=== PATIENT | female | born 1985 | race Caucasian/White ===

== ENCOUNTER → 2016-04-05 | Outpatient (CLI) | payer BC ==
[~2016-04-05] MED LIST: MULTTAB67 PO; PERC5TAB12 PO; ZOFR8TAB4 SL
[2016-04-05 13:07] LABS: MEAN CORPUSCULAR HGB CONC 29.4 % (32.0-36.0)
[2016-04-05 14:41] LABS: AUTOMATED NEUTROPHIL # 3.8 TH/MM3 (1.8-7.7); BASOPHIL # 0.1 TH/MM3 (0-0.2); BASOPHIL % 1.4 % (0.0-2.0); EOSINOPHIL # 0.5 TH/MM3 (0-0.4); EOSINOPHIL % 7.3 % (0.0-4.0); HEMATOCRIT 30.5 % (35.0-46.0); LYMPH % 28.4 % (9.0-44.0); LYMPHOCYTE # 1.9 TH/MM3 (1.0-4.8); MEAN CELL VOLUME 64.1 FL (80.0-100.0); MEAN CORPUSCULAR HEMOGLOBIN 18.8 PG (27.0-34.0); NEUT % 55.9 % (16.0-70.0); PLATELET COUNT 520 TH/MM3 (150-450); RED BLOOD COUNT 4.77 MIL/MM3 (4.00-5.30); RED CELL DISTRIBUTION WIDTH 22.1 % (11.6-17.2); WHITE BLOOD COUNT 6.8 TH/MM3 (4.0-11.0)
[2016-04-05 14:45] LABS: HEMO FLAGS AUTO DIFF
[2016-04-05 15:00] LABS: BLOOD, URINE NEG (NEG); COMMENT (UR) CULT NOT INDICATED; CULTURE IF INDICATED CULT NOT INDICATED; GLUCOSE,URINE NEG (NEG); KETONE, URINE NEG (NEG); MUCUS URINE FEW /lpf (OCC); NITRITE,URINE NEG (NEG); PH, URINE 5.5 (5.0-8.5); SQUAMOUS EPITHELIAL CELL URINE <1 /hpf (0-5); URINE COLOR YELLOW (YELLW/STRAW)
[2016-04-05 15:10] LABS: OVALOCYTES 2+ (NORMAL); PLATELET ESTIMATE SMEAR HIGH (NORMAL); PLATELET MORPHOLOGY NORMAL (NORMAL); TEARDROP RBCS 1+ (NORMAL)
[2016-04-05 15:11] LABS: SCAN/DIFF AUTO DIFF CONFIRMED
--- NOTE | 2016-04-06 17:09 | EKG ---
Date Performed: 04/05/2016 Time Performed: 13:24:07 PTAGE: 30 years EKG: SINUS TACHYCARDIA BORDERLINE RIGHT AXIS DEVIATION ABNORMAL RHYTHM ECG NO PREVIOUS TRACING DOCTOR: Houston Davis Interpretating Date/Time 04/06/2016 17:05:15
== END ==
LOC: CPRE 12:58
PROVIDERS: ATTEND Obstetrics & Gynecology
DX: Z01.818 Encounter for other preprocedural examination (principal); Z01.812 Encounter for preprocedural laboratory examination; Z01.810 Encounter for preprocedural cardiovascular examination; D25.9 Leiomyoma of uterus, unspecified; R10.2 Pelvic and perineal pain; R00.0 Tachycardia, unspecified
CPT/HCPCS: 36415; 81001; 84703; 85025; 93005

== ENCOUNTER 2016-04-07 11:52 | Inpatient (IN) | payer BC ==
--- NOTE | 2016-04-06 08:50 | MH ---
cc: CAIO RODRÍGUEZ DATE OF ADMISSION 04/07/2016 ADMISSION DIAGNOSIS Increasing dysmenorrhea secondary to large fibroid. HISTORY OF PRESENT ILLNESS The patient is a 30-year-old single white female para 0 who returned for her annual visit on 02/16/16 after a four-year hiatus. She reported increasing dysmenorrhea using condoms for control. Her Pap smear was normal. Her pelvic ultrasound showed a large fundal fibroid measuring 8.7 cm. The left ovary was normal, right could not be seen. She is now admitted for myomectomy. PAST MEDICAL HISTORY Previous surgery, none. Medications are none, vitamins only. ALLERGIES None TRANSFUSIONS None SOCIAL HISTORY She is single. She is employed at [employer]. Alcohol, tobacco and drugs are none. She is a [place]. FAMILY HISTORY Noncontributory LABORATORY Physical exam reveals a well-nourished and well-developed female. VITAL SIGNS: Stable. HEENT: Exam is normal. CHEST: Clear. HEART: Regular rate. BREASTS: The breasts are symmetrical. ABDOMEN: The abdomen shows a 14 weeks' sized uterus palpable. PELVIC: The vagina is normal. Cervix is normal. The uterus is about 4-8 weeks size. Adnexa nonpalpable. ASSESSMENT As above. PLAN She is now admitted for laparoscopy with probable laparotomy and myomectomy. While in the office, I explained the procedure, the risks, benefits and complications to include bleeding, infection, injury, and possible need for additional surgery in the future and type deliveries. She is aware of the incision size will largely contribute to length of hospital stay. She has been explained there are rare cases of requiring hysterectomy to control bleeding and she would like to proceed. MD RENE An/RAMIREZ /8:34 AM 8:42 AM
[~2016-04-07] VITALS: Ht 162.6 cm; Wt 69.2 kg
[~2016-04-07 11:52] MED LIST changes: +BUPIVACAINE LIPOSOME PF 1.3% 20 ML VIAL ONE; -PERC5TAB12 PO; -ZOFR8TAB4 SL
[2016-04-07] MEDS ORDERED: PROPOFOL 200 MG/20 ML AMP IV ONE (12:00)
[2016-04-07] MEDS ORDERED: LACTATED RINGER'S 1000 ML INJ 1,000 ML IV ONE (12:00)
[2016-04-07] MEDS ORDERED: ONDANSETRON HCL 4 MG/2 ML VIAL IV PUSH ONE (12:00)
[2016-04-07] MEDS ORDERED: KETOROLAC TROMETHAMINE 60 MG/2 ML (IM) VIAL IM ONE (12:00)
[2016-04-07] MEDS ORDERED: INSULIN HUMAN REGULAR 1,000 UNITS/10 ML VIAL SQ PRN (12:15)
[2016-04-07] MEDS ORDERED: METOPROLOL TARTRATE 25 MG TAB PO PRN (12:15)
[2016-04-07] MEDS ORDERED: LACTATED RINGER'S 1000 ML IV SCH (12:15)
[2016-04-07] MEDS ORDERED: ACETAMINOPHEN 1000 MG/100 ML VIAL IV ONE ×2 (12:15→14:23)
[2016-04-07] MEDS ORDERED: SODIUM CHLORID 0.9% 500 ML IV SCH (12:15)
[2016-04-07] MEDS ORDERED: ceFAZolin 2 GM PREMIX 50 ML IV SCH (12:15)
[2016-04-07 12:23] VITALS: BP 134/84; PULSE 98; RESP 18; TEMP 98.5; O2SAT 100
[2016-04-07] MEDS ORDERED: ACETAMINOPHEN 1000 MG/100 ML VIAL IV SCH (12:30)
[2016-04-07] MEDS ORDERED: MIDAZOLAM HCL 2 MG/2 ML VIAL ONE ×2 (13:54→17:10)
[2016-04-07] MEDS ORDERED: FAMOTIDINE 20 MG/2 ML VIAL ONE (14:23)
[2016-04-07] MEDS ORDERED: DICLOFENAC SODIUM 37.5 MG/ML VIAL IV PUSH ONE (14:23)
[2016-04-07] MEDS ORDERED: ceFAZolin INJ 1,000 MG VIAL IV ONE (16:33)
[2016-04-07] MEDS ORDERED: fentaNYL CITRATE 250 MCG/5 ML AMP ONE ×2 (17:10→17:11)
[2016-04-07] MEDS ORDERED: SODIUM CHLORIDE 0.9% FLUSH 5 ML FLUSH FLUSH PRN (18:15)
[2016-04-07] MEDS ORDERED: ZOLPIDEM TARTRATE 5 MG TAB PO PRN (18:15)
[2016-04-07] MEDS ORDERED: PROMETHAZINE HCL 25 MG TAB PO PRN (18:15)
[2016-04-07] MEDS ORDERED: diphenhydrAMINE HCL 25 MG CAP PO PRN (18:15)
[2016-04-07] MEDS ORDERED: PROMETHAZINE INJ 25 MG/ML VIAL IM PRN (18:15)
[2016-04-07] MEDS ORDERED: ONDANSETRON ODT 4 MG TAB PO PRN (18:15)
[2016-04-07] MEDS: KETOROLAC TROMETHAMINE 30 MG/ML (IVP) VIAL IVP SCH (18:15)
[2016-04-07] MEDS ORDERED: ONDANSETRON HCL 4 MG/2 ML VIAL IV PRN (18:15)
[2016-04-07] MEDS ORDERED: NALOXONE HCL 0.4 MG/ML AMP IV PRN (18:15)
[2016-04-07] MEDS: MORPHINE SULFATE 30 MG/30 ML PCA IV SCH (18:33)
[2016-04-07] MEDS: D5-1/2 NS + KCL 20 MEQ INJ 1,000 ML IV SCH (18:33)
[2016-04-07] MEDS ORDERED: *morphine SULFATE 8 MG/ML PERIprocedure ONLY ONE (18:41)
[2016-04-07] MEDS ORDERED: ONDANSETRON INJ 8 MG in DEXTROSE 5% IN WATER INJ 50 ML IV PRN ×2 (19:00)
[2016-04-07 20:00] VITALS: BP 133/72; PULSE 105; RESP 18; TEMP 96.7; O2SAT 100
[2016-04-07 21:07] LABS: MEAN CORPUSCULAR HGB CONC 29.4 % (32.0-36.0)
[2016-04-07 21:51] LABS: HEMATOCRIT 25.1 % (35.0-46.0); REVIEW FLAG FINAL
[2016-04-07] MEDS: DOCUSATE SODIUM 100 MG CAP PO SCH (22:05)
[2016-04-07] MEDS: ACETAMINOPHEN 1000 MG/100 ML VIAL IV SCH (22:08)
[2016-04-07] MEDS: SODIUM CHLORIDE 0.9% FLUSH 5 ML FLUSH FLUSH SCH (22:12)
[2016-04-07] MEDS: PCA - TOTAL MG MORPHINE DELIVERED PER SHIFT SCH (22:12)
[2016-04-08] VITALS (7 sets, daily range): BP systolic 114–139; BP diastolic 58–78; PULSE 89–105; RESP 18–20; TEMP 96.7–98; O2SAT 97–100
[2016-04-08] MEDS: KETOROLAC TROMETHAMINE 30 MG/ML (IVP) VIAL IVP SCH ×5 (00:38→23:24)
[2016-04-08] MEDS: D5-1/2 NS + KCL 20 MEQ INJ 1,000 ML IV SCH ×4 (01:31→23:25)
[2016-04-08] MEDS: ACETAMINOPHEN 1000 MG/100 ML VIAL IV SCH ×3 (05:32→20:49)
[2016-04-08] MEDS: PCA - TOTAL MG MORPHINE DELIVERED PER SHIFT SCH ×3 (06:02→20:52)
[2016-04-08] MEDS: MORPHINE SULFATE 30 MG/30 ML PCA IV SCH (06:02)
[2016-04-08 07:15] LABS: AUTOMATED NEUTROPHIL # 11.6 TH/MM3 (1.8-7.7); BASOPHIL % 0.3 % (0.0-2.0); HEMATOCRIT 24.9 % (35.0-46.0); LYMPH % 10.8 % (9.0-44.0); LYMPHOCYTE # 1.5 TH/MM3 (1.0-4.8); MEAN CELL VOLUME 65.2 FL (80.0-100.0); MEAN CORPUSCULAR HEMOGLOBIN 19.2 PG (27.0-34.0); MONO % 7.9 % (0.0-8.0); PLATELET COUNT 450 TH/MM3 (150-450); RED BLOOD COUNT 3.82 MIL/MM3 (4.00-5.30); RED CELL DISTRIBUTION WIDTH 22.9 % (11.6-17.2); WHITE BLOOD COUNT 14.3 TH/MM3 (4.0-11.0)
[2016-04-08 07:20] LABS: HEMO FLAGS AUTO DIFF
[2016-04-08 07:43] LABS: BICARBONATE 24.2 MEQ/L (21.0-32.0)
[2016-04-08 08:03] LABS: KERATOCYTES OCC (NORMAL); OVALOCYTES 1+ (NORMAL); SCAN/DIFF AUTO DIFF CONFIRMED
[2016-04-08] MEDS: DOCUSATE SODIUM 100 MG CAP PO SCH ×2 (08:35→20:49)
[2016-04-08] MEDS: SODIUM CHLORIDE 0.9% FLUSH 5 ML FLUSH FLUSH SCH ×2 (08:37→20:50)
--- NOTE | 2016-04-08 13:37 | MP ---
cc: CAIO RODRÍGUEZ DATE OF SURGERY 04/07/2016 PREOPERATIVE DIAGNOSIS Dysmenorrhea with enlarging uterine fibroid. POSTOPERATIVE DIAGNOSIS Dysmenorrhea with enlarging uterine fibroid. PROCEDURE Laparoscopy, followed by laparotomy with myomectomy. SURGEON Caio Rodríguez MD TRANSLATION DIRECTOR SOPHIE Murrell ANESTHESIA General ET. ESTIMATED BLOOD LOSS About 350 cc. FLUIDS 1.3 liters crystalloid. OBJECTIVE FINDINGS Following the induction of adequate general endotracheal anesthesia, the patient was prepped and draped supine on the operating table in the dorsal lithotomy position in the usual sterile fashion with the bladder being drained via Rob catheterization. The abdomen was opened through a 0.5 cm infraumbilical incision. A 5-port was placed, followed by a laparoscope attached to video cam. The laparoscope was inserted. The uterus was found to be enlarged to about 14-16 weeks' size with a large fundal fibroid. Normal tubes, normal ovaries, normal cul-de-sac, normal liver edge. Due to the size and location of the fibroid, it was felt best to proceed with open procedure. The laparoscope was removed, gas allowed to escape and the small port removed. The abdomen was opened through a Pfannenstiel incision using a knife to cut down through the skin to the fascia. The fascia was opened transversely, stripped from the muscles. The rectus muscle was split in the midline and the peritoneum opened sharply without incident. The elastic protractor was placed, the bowels packed from the operative field with moistened laps. The uterus was opened with a transverse incision at the level of the round ligaments. With blunt and sharp dissection the myoma was shelled out about 10 cm x 8 cm in size and did extend down to the uterine cavity which was opened in the course of removing the fibroid. Once removed, the uterus cavity was closed in three layers of interrupted sutures of 0 Vicryl in fig. 8 fashion to reapproximate the muscle and serosal layers of the transverse incision. When complete there was good hemostasis. Irrigation performed. All the free blood was washed out, the suture line inspected; there was no bleeding. Laps were removed. The suture line was sprayed with Evicel for hemostasis and adhesion prevention. Retractor was then removed. Counts were correct. The anterior peritoneum was closed with running stitch of 2-0 Vicryl, the fascia closed with running locking stitch of 0 Vicryl from corner to midline and tied, the subcu with running 3-0 Vicryl and the skin with a running subcuticular 3-0 Vicryl. The umbilical incision was closed with 3-0 Vicryl, Dermabond applied. All counts were correct and the patient was awakened and taken to the recovery room in good condition. MD RENE An/ROBERTO CARLOS /6:15 PM /1:25 PM MTDIsabella
[2016-04-09] VITALS: BP 116/63; PULSE 99; RESP 18; TEMP 98.7; O2SAT 99
[2016-04-09 04:00] VITALS: BP 115/66; PULSE 97; RESP 17; TEMP 98.3; O2SAT 99
[2016-04-09] MEDS: ACETAMINOPHEN 1000 MG/100 ML VIAL IV SCH ×2 (04:04→13:26)
[2016-04-09] MEDS: PCA - TOTAL MG MORPHINE DELIVERED PER SHIFT SCH ×2 (06:00→14:00)
[2016-04-09] MEDS: KETOROLAC TROMETHAMINE 30 MG/ML (IVP) VIAL IVP SCH ×2 (06:16→13:26)
[2016-04-09] MEDS: DOCUSATE SODIUM 100 MG CAP PO SCH (07:43)
[2016-04-09] MEDS: D5-1/2 NS + KCL 20 MEQ INJ 1,000 ML IV SCH (07:44)
[2016-04-09] MEDS: SODIUM CHLORIDE 0.9% FLUSH 5 ML FLUSH FLUSH SCH (07:44)
[2016-04-09 08:00] VITALS: BP 112/64; PULSE 74; RESP 18; TEMP 98.3; O2SAT 100
[2016-04-09] MEDS: MORPHINE SULFATE 30 MG/30 ML PCA IV SCH (10:48)
[2016-04-09 12:00] VITALS: BP 117/69; PULSE 92; RESP 18; TEMP 98.4; O2SAT 99
[2016-04-09 16:00] VITALS: BP 115/56; PULSE 76; RESP 16; TEMP 98.5; O2SAT 99
[2016-04-09] MEDS ORDERED: ZOFR8TAB4 SL (16:57)
[2016-04-09] MEDS ORDERED: PERC5TAB12 PO (16:57)
== END 2016-04-09 18:08 | disposition home or self-care (01) | DRG 743 ==
LOC: HSDC 11:52 → EDUNIT# 14:45 → HSDI 18:11 → HOCA 20:38
PROVIDERS: ADMIT Obstetrics & Gynecology; ATTEND Obstetrics & Gynecology
PROC: 0UB90ZZ Excision of Uterus, Open Approach (ICD-10-PCS; principal; 2016-04-07 16:18)
PROC: 0UJD4ZZ Inspection of Uterus and Cervix, Percutaneous Endoscopic Approach (ICD-10-PCS; 2016-04-07 16:18)
DX: N94.6 Dysmenorrhea, unspecified (principal); D25.9 Leiomyoma of uterus, unspecified; Z53.31 Laparoscopic surgical procedure converted to open procedure
CPT/HCPCS: 36415; 80048; 81001; 84703; 85014; 85018; 85025; 88305; 88307; 93005; 94150; C9290; J0131; J0690; J1130; J1885; J2250; J2270; J2405; J3010; J3480; J7120